=== PATIENT | male | born 1955 | race Caucasian/White ===

== ENCOUNTER 2021-08-16 13:11 | Emergency (ER) | payer SELFPAY ==
[~2021-08-16] VITALS: Ht 170.2 cm; Wt 81.8 kg
[2021-08-16 13:24] VITALS: BP 117/66
[2021-08-16] MEDS ORDERED: IBUPROFEN 600 MG TABLET PO ONE (14:15)
== END 2021-08-16 16:08 | disposition home or self-care (01) ==
LOC: EMS 13:11
DX: M25.531 Pain in right wrist (principal)
CPT/HCPCS: 99282; 99283

== ENCOUNTER 2024-09-18 11:48 | Emergency (ER) | payer OTHER ==
[~2024-09-18] VITALS: Ht 170.2 cm; Wt 88.6 kg
[2024-09-18 11:58] VITALS: BP 127/73; PULSE 72; RESP 16; TEMP 98.6; O2SAT 97
[2024-09-18] MEDS: OxyCODONE HCL/ACETAMINOPHEN 5-325 MG TABLET PO ONE (15:19)
[2024-09-18] MEDS ORDERED: OXYC-38 PO (15:30)
== END 2024-09-18 15:47 | disposition home or self-care (01) ==
LOC: EMS 11:48
DX: S63.91XA Sprain of unspecified part of right wrist and hand, initial encounter (principal); E78.00 Pure hypercholesterolemia, unspecified; W22.8XXA Striking against or struck by other objects, initial encounter; Y93.89 Activity, other specified; Y92.89 Other specified places as the place of occurrence of the external cause; Y99.8 Other external cause status
CPT/HCPCS: 99284; 73090-TC; 73110-TC; 73130-TC; Z7502; Z7610